=== PATIENT | female | born 1990 ===

== ENCOUNTER 2018-06-13 08:46 | Inpatient (IN) | payer OTHER ==
[~2018-06-13] VITALS: Ht 165.1 cm; Wt 70.3 kg
[2018-06-13] MEDS ORDERED: PRENATAL 19 TA1 EACH PO (10:05)
== END 2018-06-15 11:17 | disposition home or self-care (01) | DRG 775 ==
LOC: LDR 08:46 → OB/GYN 13:32
PROC: 10E0XZZ Delivery of Products of Conception, External Approach (ICD-10-PCS; principal; 2018-06-13)
PROC: 4A1HXCZ Monitoring of Products of Conception, Cardiac Rate, External Approach (ICD-10-PCS; 2018-06-13)
DX: O66.0 Obstructed labor due to shoulder dystocia (principal); Z3A.39 39 weeks gestation of pregnancy; Z37.0 Single live birth; Z22.330 Carrier of Group B streptococcus